=== PATIENT | male | born 1985 | race Caucasian/White ===

== ENCOUNTER 2019-01-16 00:18 | Emergency (ER) | payer SELFPAY ==
[~2019-01-16] VITALS: Ht 180.3 cm; Wt 99.8 kg
--- NOTE | 2019-01-16 00:18 | NUR ---
Patient to ER Hall[address] to [facility] for evaluation. Side rails up.
[2019-01-16 00:28] VITALS: BP_SYST 125
--- NOTE | 2019-01-16 00:38 | NUR ---
Dr. Becker bedside for Pt eval
--- NOTE | 2019-01-16 00:40 | NUR ---
Pt BIB [employer] to ED seeking medical clearance for booking. Pt with history of asthma. Pt denies SOB or cough. Pt denies fever, chills, nausea or vomiting. Pt denies chest pain. Pt denies suicidal or homicidal ideation. No other injuries and or complaints noted. VSS no s/s of acute distress. Resting on Hallway gurney/chair while in custody with deputy
[2019-01-16 00:50] VITALS: BP_SYST 125
--- NOTE | 2019-01-16 00:50 | NUR ---
Patient given written and verbal discharge instructions and verbalizes understanding. ER MD discussed with patient the results and treatment provided. Patient in stable condition. ID arm band removed. Patient educated on pain management and to follow up with PMD. Pain Scale 0/10. Opportunity for questions provided and answered.
== END 2019-01-16 00:50 ==
LOC: SED 00:18
DX: Z02.89 Encounter for other administrative examinations (principal); J45.909 Unspecified asthma, uncomplicated; F17.210 Nicotine dependence, cigarettes, uncomplicated; Z88.0 Allergy status to penicillin; R03.0 Elevated blood-pressure reading, without diagnosis of hypertension
CPT/HCPCS: 99283

== ENCOUNTER 2019-04-12 09:00 | Emergency (ER) | payer SELFPAY ==
[~2019-04-12] VITALS: Ht 180.3 cm; Wt 104.3 kg
[2019-04-12 09:00] VITALS: BP_SYST 109
[2019-04-12] MEDS ORDERED: ONDANSETRON 4 MG ODT TAB PO ONE (09:15)
[2019-04-12 09:55] VITALS: BP_SYST 117
== END 2019-04-12 09:55 ==
LOC: SED 09:00
DX: K52.9 Noninfective gastroenteritis and colitis, unspecified (principal); J45.909 Unspecified asthma, uncomplicated; Z88.0 Allergy status to penicillin
CPT/HCPCS: 99283; Q0162

== ENCOUNTER 2020-06-19 08:25 | Emergency (ER) | payer SELFPAY ==
[~2020-06-19] VITALS: Ht 180.3 cm; Wt 95.3 kg
[2020-06-19 08:29] VITALS: BP_SYST 130
[2020-06-19 08:39] VITALS: BP_SYST 130
== END 2020-06-19 08:40 ==
LOC: SED 08:25
DX: Z02.89 Encounter for other administrative examinations (principal); J45.909 Unspecified asthma, uncomplicated; Z88.0 Allergy status to penicillin
CPT/HCPCS: 99283

== ENCOUNTER 2024-02-11 08:41 | Emergency (ER) | payer MEDICAID ==
[~2024-02-11] VITALS: Ht 180.3 cm; Wt 104.3 kg
[2024-02-11 08:44] VITALS: BP_SYST 128; PULSE 64; RESP 18; TEMP 97.6; O2SAT 95
[2024-02-11 08:59] VITALS: RESP 18; TEMP 97.6; O2SAT 95
== END 2024-02-11 08:55 ==
LOC: SED 08:41
DX: Z02.89 Encounter for other administrative examinations (principal); J45.909 Unspecified asthma, uncomplicated; Z88.0 Allergy status to penicillin
CPT/HCPCS: 99283